=== PATIENT | male | born 1985 | race Caucasian/White ===

== ENCOUNTER 2016-10-21 19:55 | Emergency (ER) | payer OTHER ==
--- NOTE | 2016-10-21 20:54 | DIAGNOSTIC IMAGING REPORT ---
PROCEDURE: XR CHEST 2 VIEW INDICATION: CHEST PAIN, initial encounter TECHNIQUE: PA and lateral view. COMPARISON: None. FINDINGS: Lungs are clear. Cardiovascular structures are normal. Bony thorax is unremarkable. IMPRESSION: 1. Negative chest.
--- NOTE | 2016-10-21 22:52 | ED NURSING NOTES ---
Clinical Report - Nurses [facility] [address] [place] [address] 10/21/2016 19:54 Patient: CATHY MELISSA TRIAGE Triage time 20:02. Acuity: LEVEL 3. Chief Complaint: CHEST DISCOMFORT and (Mid-sternal, "I feel like my breathing gets fast and shallow, when the pain is there. "). Alert. No acute distress. SEPSIS SCREEN: Sepsis Screen: negative. Negative (no infection suspected/documented). --20:09 Gunjan Veloz R.N. 20:02 10/21/16. BP: 131/81. HR: 82. RR: 20. O2 saturation: 99%. Temp: 98.2 F. Pain level now: 6/10. Additional comments: 8/10 at times . --20: Gunjan Veloz R.N. 20:02 10/21/16. BP: 131/81. HR: 82. RR: 20. O2 saturation: 99%. Temp: 98.2 F. Pain level now: 6/10. Additional comments: 8/10 at times . --20:09 Gunjan Veloz R.N. Weight: 72.5 kg stated. Height/Length: 65 inches Per Patient. BMI: 26.6. --20:08 Gunjan Veloz R.N. Medications Protonix Oral. --20:09 Gunjan Veloz R.N. Medication/allergy information source: the patient. --20:09 Gunjan Veloz R.N. Allergies Amoxicillin.(hives) Dilaudid.(itching) Hydrocodone.(nausea) --20:09 Gunjan Veloz R.N. History Arrived by EMS. Historian: patient and family. Primary physician (ilana). This started today. ( "I lifted a large heavy box for my mom yesterday"). He has had difficulty breathing and a cough. No nausea or vomiting. PAST MEDICAL HX: Immunizations: status is unknown. SOCIAL HX: Heavy tobacco smoker- less than 1 pack per day. History of drug use: marijuana. Recently used drugs yesterday. No alcohol use. No infectious disease exposure. ABUSE ASSESSMENT: No report of abuse. FALL RISK ASSESSMENT: Fall risk assessment completed. No fall risk identified. NUTRITIONAL RISK ASSESSMENT: The nutritional risk assessment revealed no deficiencies. FUNCTIONAL ASSESSMENT: Functional assessment: no impairments noted. LEARNING NEEDS ASSESSMENT: The learning needs assessment revealed no barriers. SKIN INTEGRITY ASSESSMENT: Skin integrity risk assessment completed. No skin integrity risk identified. --20:09 Gunjan Veloz R.N. PROBLEMS: Abdominal Pain. Gastritis. Esophagitis. Hiatal Hernia. Mucosal changes to short segment barretts . Hernia. --20:07 Gunjan Veloz R.N. Epididymitis [RuleOut]. --20:07 Gunjan Veloz R.N. ADDITIONAL SURGERIES: Adenoidectomy. Tonsillectomy. Tympanostomy Tubes. --20:07 Gunjan Veloz R.N. Interventions ID and allergy band on patient. To room. --20:09 Gunjan Veloz R.N. PHYSICAL ASSESSMENT To room via stretcher. Patient gowned. GENERAL / NEURO / PSYCH: Alert. Oriented X 4. Appears in pain and anxious. HEENT: Mucous membranes are pink. RESPIRATORY: Respirations not labored. CVS: Pulses within normal limits. GI / : Abdominal tenderness in the upper abdomen. EXTREMITIES: No lower extremity edema. SKIN: Skin is warm and dry. Normal skin turgor. Skin is non-tender. --20:10 Gunjan Veloz R.N. NURSING PROGRESS NOTES Patient gowned. Head of bed elevated. Two patient identifiers checked. Call light placed in reach. Side rails up x 2. Bed placed in lowest position. Brakes of bed on. Patient ready for evaluation. --20:10 Gunjan Veloz R.N. 20:21. EKG was performed by a tech. --20:22 Yue Whalen ER Tech1 20:32 10/21/2016 Site #1 started via IV in the left forearm with an 20g angiocath, with aseptic technique and good blood return; two attempts. Blood drawn: rainbow set. Labeled in the presence of the patient and sent to the lab. Saline lock flushed with 10 mL saline. --20:32 Gunjan Veloz R.N. Patient ID band checked: patient confirmed. Clean catch urine collected with return of yellow-colored clear urine; sample sent to lab for urinalysis and culture. Specimen labeled in the presence of the patient. --20:32 Gunjan Veloz R.N. drill punch operator and pulse oximeter placed on patient; supervisor cloth winding- Lead II; monitor alarms on. NIBP monitor not placed on patient. --20:33 Gunjan Veloz R.N. Patient returned from radiology. (2019). --20:33 Gunjan Veloz R.N. 22:01 10/21/16. BP: 124/76. HR: 61. RR: 24. O2 saturation: 98%. Pain level now: 12/10. 21:00 10/21/16. BP: 123/74. HR: 59. RR: 20. O2 saturation: 98% on room air. Pain level now: 01/10. --22:02 Gunjan Veloz R.N. DISPOSITION / DISCHARGE 23:09 10/21/16. BP: 119/75. HR: 65. RR: 15. O2 saturation: 97% on room air. Temp: deferred. Lara-Bliss pain scale: 01/10. --23:10 Moriah Chung R.N. Condition at departure: improved and stable. No learning barriers present. Discharge instructions provided and reviewed with the patient. Reviewed medication(s) side effects, precautions, dosing and course information. Prescription(s) given to the patient. Patient verbalized understanding. Written instructions provided in [place]ian. The patient was discharged home and accompanied by family. He left the Emergency Department ambulatory and via private vehicle. Family member driving. --23:10 Moriah Chung R.N. 23:10 10/21/2016 Site #1 removed upon discharge. Catheter intact. Manual pressure and bandage applied. --23:10 Moriah Chung R.N. Locked/Released at 10/21/2016 23:11 by Moriah Chung R.N.
--- NOTE | 2016-10-21 22:52 | ED CLINICAL REPORT ---
Clinical Report - Physicians/Mid Levels [facility] [address] [place] [address] 10/21/2016 19:54 Patient: CATHY MELISSA Time Seen: 20:28 Oct 21 2016. Arrived- By ambulance. Historian- patient and EMS personnel. HISTORY OF PRESENT ILLNESS Chief Complaint: CHEST PAIN. This started just prior to arrival and is still present. (midsternal chest discomfort today, while standing and talking, reports some anxiety symptoms of difficulty breathing, some palpitations, symptoms are gradually improving Incident occurred prior to arrival. Pain was consistent. No history of similar pain. Yesterday was lifting heavy object. He has not had any recent illness, fevers chills or cough. Denies any abdominal pain, nausea or vomiting. Denies any history of PE, [place]. Unsure of family history of such or other genetic disorders. Denies any new medications. Denies radiation of pain. Has a history of chronic epigastric pain with gastritis, this feels different.). REVIEW OF SYSTEMS No chills or cough. All systems otherwise negative, except as recorded above. PAST HISTORY Problems: Abdominal Pain. Gastritis. Esophagitis. Hiatal Hernia. Mucosal changes to short segment barretts . Hernia. Immunizations. Epididymitis [RuleOut]. Additional Surgeries: Adenoidectomy. Tonsillectomy. Tympanostomy Tubes. Medications: Protonix Oral. Allergies: Amoxicillin.(hives) Dilaudid.(itching) Hydrocodone.(nausea). SOCIAL HISTORY Smoker- current status unknown. History of drug use: marijuana. No alcohol use. ADDITIONAL NOTES The nursing notes have been reviewed. PHYSICAL EXAM Vital Signs: 10/21/2016 20:02 BP: 131/81. HR: 82. RR: 20. O2 saturation: 99%. Temp: 98.2 F. Pain level now: 6/10. Appearance: Alert. No acute distress. No apparent distress. Does not appear to be anxious. ENT: Ears normal. Nose normal. Pharynx normal. Neck: Normal inspection. No meningeal signs or lymphadenopathy. CVS: Normal heart rate and rhythm. Heart sounds normal. Respiratory: No respiratory distress. Breath sounds normal. No accessory muscle use, chest pain reproduced on physical exam, splinting, decreased air movement or rales. No wheezes or prolonged expiration. Abdomen: Soft and nontender. No rebound tenderness. Back: Normal external inspection. Skin: Skin warm. Normal skin color. Neuro: Oriented X 3. No motor deficit. LABS, X-RAYS, AND EKG EKG: EKG time: (2020). No acute process. Normal EKG. Rate: 76. Normal P waves. Normal QRS complex. Normal axis. Normal QT. Prior EKG unavailable. The study has been interpreted contemporaneously. The EKG appears to be a good tracing. Chest X-ray: (IMPRESSION: 1. Negative chest. Electronically Final signed by:Tommy Adkins MD 10/21/2016 8:54:25 PM). Laboratory Tests: CBC w Diff: (TRISTEN: 10/21/2016 20:20) ( OhgRcvd 10/21/2016 20:39) Final results Test Result Flag Units (Reference) WHITE BLOOD COUNT 11.6 H K/uL (4.5-11.5) RED BLOOD COUNT 5.93 H M/uL (4.50-5.90) HEMOGLOBIN 17.9 H gm/dL (13.5-17.5) HEMATOCRIT 54.5 H % (41.0-53.0) MEAN CELL VOLUME 92 fL (80-100) MEAN CORPUSCULAR HGB 30 pg (26-34) MEAN CORPUSCULAR HGB CONC 33 g/dL (31-37) RED CELL DISTRIBUTION WIDTH 13.3 % (11.6-14.8) PLATELET COUNT 216 K/uL (150-400) NEUTROPHIL % 71.3 % (50-75) LYMPH % 18.9 L % (25-40) MONO % 8.0 % (3-14) EOSINOPHIL % 1.5 % (0-4) BASOPHIL % 0.3 % (0-2) CHEM 13 PANEL: (TRISTEN: 10/21/2016 20:20) ( MsgRcvd 10/21/2016 21:02) Final results Test Result Flag Units (Reference) GLUCOSE 105 mg/dL (70-110) BUN 9 mg/dL (7-18) CREATININE 0.8 mg/dL (0.6-1.3) Estimated GFR >60 mL/min Estimated GFR- >60 mL/min Note: Persistent reduction over 3 months in eGFR<60 mL/min/1.73 m2 defines CKD. Patients with eGFR values>=60 mL/min/1.73 m2 may also have CKD if evidence ofpersistent proteinuria. Additional information may be foundat www.kidney.org. SODIUM 144 mmol/L (136-145) POTASSIUM 3.4 L mmol/L (3.5-5.1) CHLORIDE 106 mmol/L (98-107) CARBON DIOXIDE 24 mmol/L (21-32) CALCIUM 9.2 mg/dL (8.5-10.1) TOTAL PROTEIN 7.9 g/dL (6.4-8.2) ALBUMIN 4.8 g/dL (3.3-5.0) BILIRUBIN, TOTAL 0.6 mg/dL (0.0-1.0) ALKALINE PHOSPHATASE 74 U/L (46-116) AST (SGOT) 23 U/L (15-37) ALT (SGPT) 45 U/L (12-78) CPK 160 U/L (24-260) MAGNESIUM 2.2 mg/dL (1.8-2.4) TROPONIN I <0.05 L ng/mL (0.00-1.5) TROPONIN REFERENCE RANGE:<0.1 NEGATIVE0.1-1.5 INDETERMINANT>1.5 POSITIVE . PROGRESS AND PROCEDURES Course of Care: Patient here in the ER, with gradual improvement of symptoms, at this time differential diagnosis is broad, however workup in any 31-year-old smoking male, is unremarkable including EKG, cardiac enzymes and chest x-ray. Denies any drug use beyond marijuana. No new murmur. Afebrile. 10/21/2016 23:09 BP: 119/75. HR: 65. RR: 15. O2 saturation: 97%. Lara-Bliss pain scale: 4/10. Patient is stable. Physical exam findings are improved. Symptoms better. Patient/family counseled. Differential Diagnosis: I considered muscle strain, costochondritis, myositis, epidemic pleurodynia, rib fracture, herpes zoster, myocardial infarction, intermediate coronary syndrome, unstable angina, angina, aortic dissection, mitral valve prolapse, pericarditis, palpitations, pulmonary embolism, pneumonia, pneumothorax, gastroesophageal reflux disease and esophagitis as a possible cause of chest pain in this patient. This is a partial list of diagnoses considered. Disposition: Discharged. Condition: good. CLINICAL IMPRESSION Atypical chest pain INSTRUCTIONS No strenuous activity. OTC Medications: Take OTC medications according to label instructions. Available over the counter. Motrin (available over the counter): take according to label instructions. Follow-up: Follow up with your doctor in three days. (Electronically signed by Tete Herman P.A.-C 10/22/2016 13:06)
--- NOTE | 2016-10-21 22:52 | ED NURSING NOTES ---
Clinical Report - Nurses [facility] [address] [place] [address] 10/21/2016 19:54 Patient: CATHY MELISSA TRIAGE Triage time 20:02. Acuity: LEVEL 3. Chief Complaint: CHEST DISCOMFORT and (Mid-sternal, "I feel like my breathing gets fast and shallow, when the pain is there. "). Alert. No acute distress. SEPSIS SCREEN: Sepsis Screen: negative. Negative (no infection suspected/documented). --20:09 Gunjan Veloz R.N. 20:02 10/21/16. BP: 131/81. HR: 82. RR: 20. O2 saturation: 99%. Temp: 98.2 F. Pain level now: 6/10. Additional comments: 8/10 at times . --20: Gunjan Veloz R.N. 20:02 10/21/16. BP: 131/81. HR: 82. RR: 20. O2 saturation: 99%. Temp: 98.2 F. Pain level now: 6/10. Additional comments: 8/10 at times . --20:09 Gunjan Veloz R.N. Weight: 72.5 kg stated. Height/Length: 65 inches Per Patient. BMI: 26.6. --20:08 Gunjan Veloz R.N. Medications Protonix Oral. --20:09 Gunjan Veloz R.N. Medication/allergy information source: the patient. --20:09 Gunjan Veloz R.N. Allergies Amoxicillin.(hives) Dilaudid.(itching) Hydrocodone.(nausea) --20:09 Gunjan Veloz R.N. History Arrived by EMS. Historian: patient and family. Primary physician (ilana). This started today. ( "I lifted a large heavy box for my mom yesterday"). He has had difficulty breathing and a cough. No nausea or vomiting. PAST MEDICAL HX: Immunizations: status is unknown. SOCIAL HX: Heavy tobacco smoker- less than 1 pack per day. History of drug use: marijuana. Recently used drugs yesterday. No alcohol use. No infectious disease exposure. ABUSE ASSESSMENT: No report of abuse. FALL RISK ASSESSMENT: Fall risk assessment completed. No fall risk identified. NUTRITIONAL RISK ASSESSMENT: The nutritional risk assessment revealed no deficiencies. FUNCTIONAL ASSESSMENT: Functional assessment: no impairments noted. LEARNING NEEDS ASSESSMENT: The learning needs assessment revealed no barriers. SKIN INTEGRITY ASSESSMENT: Skin integrity risk assessment completed. No skin integrity risk identified. --20:09 Gunjan Veloz R.N. PROBLEMS: Abdominal Pain. Gastritis. Esophagitis. Hiatal Hernia. Mucosal changes to short segment barretts . Hernia. --20:07 Gunjan Veloz R.N. Epididymitis [RuleOut]. --20:07 Gunjan Veloz R.N. ADDITIONAL SURGERIES: Adenoidectomy. Tonsillectomy. Tympanostomy Tubes. --20:07 Gunjan Veloz R.N. Interventions ID and allergy band on patient. To room. --20:09 Gunjan Veloz R.N. PHYSICAL ASSESSMENT To room via stretcher. Patient gowned. GENERAL / NEURO / PSYCH: Alert. Oriented X 4. Appears in pain and anxious. HEENT: Mucous membranes are pink. RESPIRATORY: Respirations not labored. CVS: Pulses within normal limits. GI / : Abdominal tenderness in the upper abdomen. EXTREMITIES: No lower extremity edema. SKIN: Skin is warm and dry. Normal skin turgor. Skin is non-tender. --20:10 Gunjan Veloz R.N. NURSING PROGRESS NOTES Patient gowned. Head of bed elevated. Two patient identifiers checked. Call light placed in reach. Side rails up x 2. Bed placed in lowest position. Brakes of bed on. Patient ready for evaluation. --20:10 Gunjan Veloz R.N. 20:21. EKG was performed by a tech. --20:22 Yue Whalen ER Tech1 20:32 10/21/2016 Site #1 started via IV in the left forearm with an 20g angiocath, with aseptic technique and good blood return; two attempts. Blood drawn: rainbow set. Labeled in the presence of the patient and sent to the lab. Saline lock flushed with 10 mL saline. --20:32 Gunjan Veloz R.N. Patient ID band checked: patient confirmed. Clean catch urine collected with return of yellow-colored clear urine; sample sent to lab for urinalysis and culture. Specimen labeled in the presence of the patient. --20:32 Gunjan Veloz R.N. monitoring manager and pulse oximeter placed on patient; monitoring manager- Lead II; monitor alarms on. NIBP monitor not placed on patient. --20:33 Gunjan Veloz R.N. Patient returned from radiology. (2019). --20:33 Gunjan Veloz R.N. 22:01 10/21/16. BP: 124/76. HR: 61. RR: 24. O2 saturation: 98%. Pain level now: 12/10. 21:00 10/21/16. BP: 123/74. HR: 59. RR: 20. O2 saturation: 98% on room air. Pain level now: 01/10. --22:02 Gunjan Veloz R.N. DISPOSITION / DISCHARGE 23:09 10/21/16. BP: 119/75. HR: 65. RR: 15. O2 saturation: 97% on room air. Temp: deferred. Lara-Bliss pain scale: 01/10. --23:10 Moriah Chung R.N. Condition at departure: improved and stable. No learning barriers present. Discharge instructions provided and reviewed with the patient. Reviewed medication(s) side effects, precautions, dosing and course information. Prescription(s) given to the patient. Patient verbalized understanding. Written instructions provided in [place]. The patient was discharged home and accompanied by family. He left the Emergency Department ambulatory and via private vehicle. Family member driving. --23:10 Moriah hCung R.N. 23:10 10/21/2016 Site #1 removed upon discharge. Catheter intact. Manual pressure and bandage applied. --23:10 Moriah Chung R.N. Locked/Released at 10/21/2016 23:11 by Moriah Chung R.N.
--- NOTE | 2016-10-21 22:53 | ED ORDER SUMMARY ---
..... Patient: CATHY MELISSA OrderSheet [facility] VisitID: [id number] [place] [address] 31y, M Registration Date/Time: 10/21/2016 ORDER SHEET Weight: 72.5 kg (stated) Allergies: Amoxicillin, Dilaudid, Hydrocodone GENERAL ORDERS: Chest 2V Urgent (20:10/21/2016 EKoroleva P.A.-C) (Ack 20:15 LTapper) (20:31 MCampbell) Cardiac Panel Stat (20:10/21/2016 EKoroleva P.A.-C) (Ack 20:15 LTapper) (20:31 SRoberts R.N.) Battery Container Tester (Continuous) (20:10/21/2016 EKoroleva P.A.-C) (20:22 AMcQuoid ER Tech1) EKG - ER Stat (20:10/21/2016 EKoroleva P.A.-C) (Ack 20:15 LTapper) (20:22 AMcQuoid ER Tech1) MEDICATION ORDERS: IV FLUIDS: IV Saline Lock (20:10/21/2016 EKoroleva P.A.-C) (20:32 Rajeev R.N.) ORDER SHEET NOTES: [Electronically signed by Moriah Chung R.N. (23:11 10/21/2016)] [Electronically signed by Tete Herman P.A.-C (13:06 10/22/2016)] [Electronically locked/signed by Moriah Chung R.N. (23:11 10/21/2016)]
--- NOTE | 2016-10-21 22:53 | ED ORDER SUMMARY ---
..... Patient: CATHY MELISSA OrderSheet [facility] VisitID: [id number] [place] [address] 31y, M Registration Date/Time: 10/21/2016 ORDER SHEET Weight: 72.5 kg (stated) Allergies: Amoxicillin, Dilaudid, Hydrocodone GENERAL ORDERS: Chest 2V Urgent (20:10/21/2016 EKoroleva P.A.-C) (Ack 20:15 LTapper) (20:31 MCampbell) Cardiac Panel Stat (20:10/21/2016 EKoroleva P.A.-C) (Ack 20:15 LTapper) (20:31 SRoberts R.N.) Animal Rehabilitator (Continuous) (20:10/21/2016 EKoroleva P.A.-C) (20:22 AMcQuoid ER Tech1) EKG - ER Stat (20:10/21/2016 EKoroleva P.A.-C) (Ack 20:15 LTapper) (20:22 AMcQuoid ER Tech1) MEDICATION ORDERS: IV FLUIDS: IV Saline Lock (20:10/21/2016 EKoroleva P.A.-C) (20:32 Rajeev R.N.) ORDER SHEET NOTES: [Electronically signed by Moriah Chung R.N. (23:11 10/21/2016)] [Electronically signed by Tete Herman P.A.-C (13:06 10/22/2016)] [Electronically locked/signed by Moriah Chung R.N. (23:11 10/21/2016)]
--- NOTE | 2016-10-22 13:07 | ED MAR SUMMARY ---
..... Medication Administration Record [facility] [address], [place] [id number] Patient: CATHY MELISSA Visit ID: [id number] 31y, M Weight: 72.5 kg Height/Length: 65 in BMI: 26.6 ALLERGIES: Amoxicillin, Dilaudid, Hydrocodone
--- NOTE | 2016-10-22 13:07 | ED DISCHARGE INSTRUCTIONS ---
Patient: CATHY MELISSA General Instructions [facility] VisitID: [id number] [place] [address] 31y, M Registration Date/Time: 10/21/2016 Atypical chest pain INSTRUCTIONS No strenuous activity. OTC Medications: Take OTC medications according to label instructions. Available over the counter. Motrin (available over the counter): take according to label instructions. Follow-up: Follow up with your doctor in three days. ADDITIONAL INFORMATION Chest Pain, Noncardiac Based on your visit today, the exact cause of your chest pain is not certain. Your condition does not seem serious and your pain does not appear to be coming from your heart. However, sometimes the signs of a serious problem take more time to appear. Therefore, please watch for the warning signs listed below. Home Care: Rest today and avoid strenuous activity. Take any prescribed medicine as directed. Follow Up with your doctor or this facility as instructed or if you do not start to feel better within 24 hours. Get Prompt Medical Attention if any of the following occur: A change in the type of pain: if it feels different, becomes more severe, lasts longer, or begins to spread into your shoulder, arm, neck, jaw or back Shortness of breath or increased pain with breathing Cough with dark colored sputum (phlegm) or blood Weakness, dizziness, or fainting Fever of 100.4F (38C) or higher, or as directed by your healthcare provider Swelling, pain or redness in one leg Chest Pain, Uncertain Cause Chest pain can happen for a number of reasons. Sometimes the cause can not be determined. If yourcondition does not seem serious, and your pain does not appear to be coming from your heart, your doctor may recommend watching it closely. Sometimes the signs of a serious problem take more time to appear. Therefore, watch for the warning signs listed below. Home care After your visit, follow these recommendations: Rest today and avoid strenuous activity. Take any prescribed medicine as directed. Follow-up care Follow up with your doctor or this facility as instructed or if you do not start to feel better within 24 hours. Call 911 Get immediate medical attention if any of the following occur: A change in the type of pain: if it feels different, becomes more severe, lasts longer, or begins to spread into your shoulder, arm, neck, jaw or back Shortness of breath or increased pain with breathing Weakness, dizziness, or fainting Rapid heart beat Get prompt medical attention Call your doctor right away if any of the following occur: Cough with dark colored sputum (phlegm) or blood Fever of 100.4F(38C) or higher, or as directed by your health care provider Swelling, pain or redness in one leg You have been given the following additional information: Chest Pain, Noncardiac Chest Pain, Uncertain Cause No strenuous activity. (Electronically signed by Tete Herman P.A.-C 10/22/2016 13:06)
--- NOTE | 2016-10-22 13:07 | ED MED RECONCILIATION SUMMARY ---
Patient: CATHY MELISSA Medication Reconciliation Report [facility] VisitID: [id number] [address] [place] [address] 31y, M Registration Date/Time: 10/21/2016 Weight: 72.5 kg Height/Length: 65 in. BMI: 26.6 ALLERGIES: Amoxicillin, Dilaudid, Hydrocodone The patient's Home Medications are listed below: THE FOLLOWING MEDICATIONS NEED TO BE RECONCILED: Protonix Oral The source(s) of the original Home Medication information: patient The following Medications were given to the patient in the Emergency Department: None. The following Medications were prescribed to the patient: Take OTC medications according to label instructions. Available over the counter. -- Tete Herman P.A.-Luis M Motrin (available over the counter): take according to label instructions. -- Tete Herman, P.A.-C
--- NOTE | 2016-10-22 13:07 | ED MED RECONCILIATION SUMMARY ---
Patient: CATHY MELISSA Medication Reconciliation Report [facility] VisitID: [id number] [address] [place] [address] 31y, M Registration Date/Time: 10/21/2016 Weight: 72.5 kg Height/Length: 65 in. BMI: 26.6 ALLERGIES: Amoxicillin, Dilaudid, Hydrocodone The patient's Home Medications are listed below: THE FOLLOWING MEDICATIONS NEED TO BE RECONCILED: Protonix Oral The source(s) of the original Home Medication information: patient The following Medications were given to the patient in the Emergency Department: None. The following Medications were prescribed to the patient: Take OTC medications according to label instructions. Available over the counter. -- Tete Herman P.A.-Luis M Motrin (available over the counter): take according to label instructions. -- Tete Herman, P.A.-C
--- NOTE | 2016-10-22 13:07 | ED MAR SUMMARY ---
..... Medication Administration Record [facility] [address] [place], [place] [id number] Patient: CATHY MELISSA Visit ID: [id number] 31y, M Weight: 72.5 kg Height/Length: 65 in BMI: 26.6 ALLERGIES: Amoxicillin, Dilaudid, Hydrocodone
== END 2016-10-21 23:10 | disposition home or self-care (01) ==
LOC: ED SRH 19:55
DX: R07.89 Other chest pain (principal); F17.200 Nicotine dependence, unspecified, uncomplicated; Z88.0 Allergy status to penicillin; Z88.5 Allergy status to narcotic agent
CPT/HCPCS: 90100; 90616; 92610; 92720; 95059